=== PATIENT | female | born 1960 | race Caucasian/White ===

== ENCOUNTER 2020-12-07 17:43 | Emergency (ER) | payer OTHER ==
[~2020-12-07] VITALS: Ht 157.5 cm; Wt 77.2 kg
[~2020-12-07 17:43] MED LIST: FLUO10CA15 PO; OLAN2.5T11 PO; OMEP10CA PO; OXYC1TAB20 PO; WARF3TAB50 PO
--- NOTE | 2020-12-07 19:12 | PHYS DOC ---
Past History Past Medical History: Anxiety, Depression, DVT, GERD, Hypertension Additional Past Medical Histor: MYASTHENIA GRAVIS; SINUS THROMBOSIS (SLAVA DIETRICH APRN) Past Surgical History: Cholecystectomy, Other Additional Past Surgical Histo: LEG FX REPAIR WITH PLATES ANS SCREWS; PARTIAL DISCECTOMY (SLAVA DIETRICH APRN) Smoking: Cigarettes Alcohol Use: Occasionally Drug Use: None (SLAVA DIETRICH APRN) General Adult EDM: Chief Complaint: HYPERTENSION HPI: HPI: Patient is a 89-year-old female who presents with hypertension. Patient states that she was seen today at her neurologist when you told her blood pressure was elevated and she needed to come to the emergency room. Patient states that she went to [facility] and sat in the ER for an hour without being seen so she left and came here. Triage and patient she states "I remembered I did not take my blood pressure medicine this morning". "I just feel very stressed out and anxious". "That is why my blood pressure is so high". Patient denies headache, chest pain, shortness of breath. Patient has history of myasthenia gravis, hypertension, and is currently being treated for a scratch bite to her left ankle. (SLAVA DIETRICH APRN) Review of Systems: Review of Systems: Constitutional: Denies fever or chills Eyes: Denies change in visual acuity HENT: Denies nasal congestion or sore throat Respiratory: Denies cough or shortness of breath Cardiovascular: Denies chest pain or edema GI: Denies abdominal pain, nausea, vomiting, bloody stools or diarrhea : Denies dysuria Musculoskeletal: Denies back pain or joint pain Integument: Denies rash Neurologic: Denies headache, focal weakness or sensory changes Endocrine: Denies polyuria or polydipsia Lymphatic: Denies swollen glands Psychiatric: Reports depression and anxiety (SLAVA DIETRICH APRN) Allergies: Allergies: Allergies Coded Allergies Type Severity Reaction Last Updated Verified Penicillins Allergy Unknown Swelling 02/03/15 Yes (SLAVA DIETRICH APRN) Physical Exam: PE: Constitutional: Well developed, well nourished, no acute distress, non-toxic appearance. [] HENT: Normocephalic, atraumatic, bilateral external ears normal, oropharynx moist, no oral exudates, nose normal. [] Eyes: PERRLA, EOMI, conjunctiva normal, no discharge. [] Neck: Normal range of motion, no tenderness, supple, no stridor. [] Cardiovascular:Heart rate regular rhythm, no murmur [] Lungs & Thorax: Bilateral breath sounds clear to auscultation [] Abdomen: Bowel sounds normal, soft, no tenderness, no masses, no pulsatile masses. [] Skin: Warm, dry, no erythema, no rash. [] Back: No tenderness, no CVA tenderness. [] Extremities: No tenderness, no cyanosis, no clubbing, ROM intact, no edema. [] Neurologic: Alert and oriented X 3, normal motor function, normal sensory function, no focal deficits noted. [] Psychologic: tearful, anxious (SLAVA DIETRICH APRN) Current Patient Data: Vital Signs: Vital Signs Date Time Temp Pulse Resp B/P (MAP) Pulse Ox O2 Delivery O2 Flow Rate FiO2 12/07/20 18:15 210/97 (134) 12/07/20 18:06 98.3 84 18 97 Room Air (SLAVA DIETRICH APRN) EKG: EKG: Sinus Rhythm. HR 79 BPM. Read by .[] (SLAVA DIETRICH APRN) Radiology/Procedures: Radiology/Procedures: [] (SLAVA DIETRICH APRN) Heart Score: Risk Factors: Risk Factors: DM, Current or recent (<one month) smoker, HTN, HLP, family history of CAD, obesity. Risk Scores: Score 0 - 3: 2.5% MACE over next 6 weeks - Discharge Home Score 4 - 6: 20.3% MACE over next 6 weeks - Admit for Clinical Observation Score 7 - 10: 72.7% MACE over next 6 weeks - Early Invasive Strategies (SLAVA DIETRICH APRN) Course & Med Decision Making: Course & Med Decision Making Pertinent Labs and Imaging studies reviewed. (See chart for details) []Patient is a 89-year-old female who presents with hypertension. Patient states that she was seen today at her neurologist when you told her blood pressure was elevated and she needed to come to the emergency room. Patient states that she went to [facility] and sat in the ER for an hour without being seen so she left and came here. Triage and patient she states "I remembered I did not take my blood pressure medicine this morning". "I just feel very stressed out and anxious". "That is why my blood pressure is so high". Patient denies headache, chest pain, shortness of breath. Patient has history of myasthenia gravis, hypertension, and is currently being treated for a scratch bite to her left ankle. She is being seen for asymptomatic hypertension. Patient reports that she did not take her blood pressure medicine this morning. Patient's blood pressure was 203/104. Patient denies headache, shortness of breath, chest pain. Patient is very tearful and anxious. "I am so sick of being sick". Clonidine ordered for blood pressure and EKG to rule out any cardiac arrhythmias. Patient given Xanax for her anxiety. Patient reports that she takes 0.25 mg at home. Will reassess patient after medications are given. Reassessment of blood pressure was 170/85. Patient states that she checks her blood pressure regularly at home and that it was only high because she had forgotten to take her medication today. Patient states that she feels much better and her anxiety is gone after medication given. Patient is requesting to be discharged to home. Patient is hemodynamically stable. Will have patient follow-up with primary care physician with any concerns. (SLAVA DIETRICH APRN) Dragon Disclaimer: Dragon Disclaimer: This electronic medical record was generated, in whole or in part, using a voice recognition dictation system. (SLAVA DIETRICH APRN) Departure Departure: Impression: Primary Impression: Hypertension Qualified Codes: I15.8 - Other secondary hypertension Disposition: 01 DC HOME SELF CARE/HOMELESS Condition: GOOD Referrals: ANG MOORE (PCP) Patient Instructions: Anxiety and Panic Attacks, [id number], Hypertension, [id number] Additional Instructions: You were seen in the emergency room today for elevated blood pressure and anxiety. You were given anxiety medication and blood pressure medication while in the emergency room. Please make sure to take your blood pressure medicine daily as prescribed. If you have any other questions or concerns, please return to the emergency room. Otherwise, follow-up with your primary care physician. EMERGENCY DEPARTMENT GENERAL DISCHARGE INSTRUCTIONS Thank you for coming to [facility] (ED) today and trusting us with you care. We trust that you had a positivie experience in our Emergency Department. If you wish to speak to the department management, you may call the director at [phone]. YOUR FOLLOW UP INSTRUCTIONS ARE FOLLOWS: 1. Do you have a private Doctor? If you do not have a private doctor, please ask for a resource list of physicians or clinics that may be able to assist you with follow up care. 2. The Emergency Physician has interpreted your x-rays. The X-Ray specialist will also review them. If there is a change in the findings, you will be notified in 48 hours when at all possible. 3. A lab test or culture has been done, your results will be reviewed and you will be notified if you need a change in treatment. ADDITIONAL INSTRUCTIONS AND INFORMATION: 1. Your care today has been supervised by a physician who is specially trained in emergency care. Many problems require more than one evaluation for a complete diagnosis and treatment. We recommend that you schedule your follow up appointment as recommended to ensure complete treatment of you illness or injury. If you are unable to obtain follow up care and continue to have a problem, or if your condition worsens, we recommend that you return to the ED. 2. We are not able to safely determine your condition over the phone nor are we able to give sound medical advice over the phone. For these safety reasons, if you call for medical advice we will ask you to come to the ED for further evaluation. 3. If you have any questions regarding these discharge instructions please call the ED at [phone]. SAFETY INFORMATION: In the interest of safety, wellness, and injury prevention; we encourage you to wear your sealbelt, if you smoke; quite smoking, and we encourage family to use a protective helmet for bicycling and other sporting events that present an increased risk for head injury. IF YOUR SYMPTOMS WORSEN OR NEW SYMPTOMS DEVELOP, OR YOU HAVE CONCERNS ABOUT YOUR CONDITION; OR IF YOUR CONDITION WORSENS WHILE YOU ARE WAITING FOR YOUR FOLLOW UP APPOINTMENT; EITHER CONTACT YOUR PRIMARY CARE DOCTOR, THE PHYSICIAN WHOSE NAME AND NUMBER YOU WERE GIVEN, OR RETURN TO THE ED IMMEDIATELY. Attending Signature Attending Signature I have participated in the care of this patient and I have reviewed and agree with all pertinent clinical information above including history, exam, and recommendations. (JONNY MIXON MD) SLAVA DIETRICH APRN Dec 07, 2020 19:12 JONNY MIXON MD Dec 08, 2020 18:29
[2020-12-07] MEDS ORDERED: ALPRAZolam 0.25 MG TABLET PO ONE (19:15)
[2020-12-07] MEDS ORDERED: cloNIDine HCL 0.1 MG TABLET PO ONE (19:15)
--- NOTE | 2020-12-07 20:06 | EKG ---
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
[2020-12-07 21:03] VITALS: BP 171/85
== END 2020-12-07 21:02 | disposition home or self-care (01) ==
LOC: ER 17:43
DX: I15.8 Other secondary hypertension (principal); F41.9 Anxiety disorder, unspecified; F32.9 Major depressive disorder, single episode, unspecified; K21.9 Gastro-esophageal reflux disease without esophagitis; F17.210 Nicotine dependence, cigarettes, uncomplicated; Z86.718 Personal history of other venous thrombosis and embolism; Z88.0 Allergy status to penicillin
CPT/HCPCS: 93005; 99283

== ENCOUNTER → 2020-12-14 | Outpatient (CLI) | payer OTHER ==
[2020-12-07 21:03] VITALS: BP 171/85
--- NOTE | 2020-12-14 15:52 | RAD ---
Ankle-brachial indices bilaterally: Reason for examination: Cat bite to left leg. Nonhealing. History of hypertension. Right brachial 192 Right posterior tibial artery 178 Right dorsalis pedis artery 185 Right ankle brachial index 0.97 Left brachial 188 Left posterior tibial artery 176 Left dorsalis pedis artery 161 Left ankle brachial index 0.93 IMPRESSION: Mild decreased ankle-brachial indices bilaterally but still within acceptable limits. Left lower extremity arterial Doppler: The left lower extremity arterial system was evaluated from the left common femoral artery distally t o the posterior tibial and dorsalis pedis arteries with grayscale imaging, color-flow imaging and spe ctral analysis. There are triphasic waveforms from the common femoral artery to the popliteal artery. There are bipha sic waveforms at the distal posterior tibial artery and the dorsalis pedis artery. There appears to b e a monophasic waveform at the proximal posterior tibial artery and at the anterior tibial arteries. The peroneal artery was not visualized. There appear to be increased flow velocities at the common fe moral artery to the distal superficial femoral artery and at the anterior tibial artery. Flow velocities are as follows: (In centimeters per second) Common femoral artery 168 Profunda femoral artery 174 Proximal superficial femoral artery 141 Mid superficial femoral artery 1:30 Distal superficial femoral artery 132 Popliteal artery 70 Proximal posterior tibial artery 80 Distal posterior tibial artery 63 Anterior tibial artery 102 Dorsalis pedis artery 37 IMPRESSION: Normal triphasic waveforms with some elevation of the flow velocities from the common femoral artery to the distal superficial femoral artery. Monophasic waveforms at the proximal posterior tibial arter y and anterior tibial artery which may reflect high-grade stenosis or collateral flow. Electronically signed by: Marilyn Pate MD (12/14/2020 3:49 PM) [facility]
== END ==
LOC: US 12:45
PROVIDERS: ATTEND Emergency Medicine Undersea and Hyperbaric Medicine
DX: I87.011 Postthrombotic syndrome with ulcer of right lower extremity (principal); L97.212 Non-pressure chronic ulcer of right calf with fat layer exposed; I10 Essential (primary) hypertension
CPT/HCPCS: 93922; 93926

== ENCOUNTER 2021-05-05 16:11 | Emergency (ER) | payer OTHER ==
[~2021-05-05] VITALS: Ht 157.5 cm; Wt 80.0 kg
--- NOTE | 2021-05-05 16:42 | PHYS DOC ---
Past History Past Medical History: Anxiety, Depression, DVT, GERD, Hypertension Additional Past Medical Histor: MYASTHENIA GRAVIS; SINUS THROMBOSIS (MERLINE CHENG DO) Past Surgical History: Cholecystectomy, Other Additional Past Surgical Histo: LEG FX REPAIR WITH PLATES ANS SCREWS; PARTIAL DISCECTOMY (MERLINE CHENG DO) Smoking: Cigarettes Alcohol Use: Occasionally Drug Use: None (MERLINE CHENG DO) Adult General Chief Complaint Chief Complaint: SHORTNESS OF BREATH HPI HPI Patient is a 60-year-old female presenting for shortness of breath. Reports this is an acute on chronic issue, states in the past 4 days she has had increased dyspnea, generalized chest pressure and wheezing. She is concerned as she has history of myasthenia gravis, was intubated in December 2020 and had lengthy hospitalization at [facility] December through March for myasthenia and related complications. She has feeding tube and was subsequently discharged home as mentioned early March. Reports since she was discharged home, she has been picking up smoking as she has been more stressed. Denies any fever, vision changes, chest pain, ripping or tearing sensation in chest but does admit ongoing shortness of breath, wheezing, dry nonproductive cough and generalized chest pressure that is worse with exertion. Does admit she is currently anticoagulated with warfarin with last INR check several days ago and was 3.0, no other significant changes in baseline health (MERLINE CHENG DO) Review of Systems Review of Systems Fourteen body systems of review of systems have been reviewed. See HPI for pertinent positives and negative responses, other de la garza all other systems are negative, non-pertinent or non-contributory (MERLINE CHENG DO) Allergies Allergies Allergies Coded Allergies Type Severity Reaction Last Updated Verified Penicillins Allergy Unknown Swelling 05/05/21 Yes (MERLINE CHENG DO) Physical Exam Physical Exam Constitutional: Well developed, well nourished, no acute distress, non-toxic appearance. HENT: Normocephalic, atraumatic, bilateral external ears normal, oropharynx moist, no oral exudates, nose normal. Eyes: PERRLA, EOMI, conjunctiva normal, no discharge. Neck: Normal range of motion, no tenderness, supple, no stridor. Cardiovascular: Heart rate regular, sinus rhythm, no murmurs rubs or gallops Lungs & Thorax: No overt signs respiratory failure or tachypnea both patient is demonstrated increased work of breathing and accessory muscle use and neck, patient does have crackles and diffuse rhonchi with wheezing noted on end expiratory phases of respiration Abdomen: Bowel sounds normal, soft, J-tube present and well-appearing, no tenderness, no masses, no pulsatile masses. Nonsurgical abdomen, no peritoneal signs Skin: Warm, dry, no erythema, no rash. Back: No tenderness, no CVA tenderness. Extremities: No tenderness, no cyanosis, no clubbing, ROM intact, no edema. Neurologic: Alert and oriented X 3, grossly normal motor & sensory function, no focal deficits noted. Psychologic: Anxious affect and mood (MERLINE CHENG DO) Current Patient Data Vital Signs Vital Signs Date Time Temp Pulse Resp B/P (MAP) Pulse Ox O2 Delivery O2 Flow Rate FiO2 05/05/21 16:31 98.7 90 20 156/84 95 Lab Results Current Medications Medications (Trade) Dose Ordered Sig/Jenny Route PRN Reason Start Time Stop Time Status Last Admin Dose Admin Iohexol (Omnipaque 350 Mg/ml) 100 ml 1X ONCE IV 05/05/21 17:30 05/05/21 17:31 DC 05/05/21 17:32 Info (Do NOT chart on this entry -- for MONITORING) 1 each PRN DAILY PRN MC SEE COMMENTS 05/05/21 17:30 05/05/21 19:48 DC Albuterol/ Ipratropium (Duoneb) 3 ml 1X ONCE NEB 05/05/21 18:15 05/05/21 18:17 DC 05/05/21 18:16 Methylprednisolone Sodium Succinate (SOLU-Medrol 125MG VIAL) 125 mg 1X ONCE IV 05/05/21 18:15 05/05/21 18:17 DC 05/05/21 18:45 Albuterol/ Ipratropium (Duoneb) 3 ml STK-MED ONCE .ROUTE 05/05/21 18:12 05/05/21 18:13 DC Azithromycin (Zithromax) 500 mg 1X ONCE PO 05/05/21 18:30 05/05/21 18:31 DC 05/05/21 18:44 (MERLINE CHENG DO) EKG EKG EKG ordered and interpreted by myself at 1640 hrs. as sinus rhythm at 82 bpm, unremarkable intervals, no axis deviation, no obvious ischemic findings, no STEMI (MERLINE CHENG DO) Radiology/Procedures Radiology/Procedures XR CHEST 1V History: Reason: shob / Spl. Instructions: / History: Comparison: March 11, 2014 Findings: Ill-defined bibasilar opacities. No pleural effusion. No pneumothorax. Normal heart size. Impression: 1. Mild ill-defined bibasilar opacities, may represent atelectasis or developing infiltrates. If persistent clinical concern, recommend follow-up. Electronically signed by: Nick Butler DO (05/05/2021 5:06 PM) [facility] ////////////////////// Exam: CT of chest with contrast INDICATION: Shortness of breath, factor V Leiden TECHNIQUE: Sequential axial images through the chest obtained following the administration 100 mL of Omni 350 IV contrast. Sagittal and coronal reformatted images were reconstructed from the axial data and reviewed. 3-D reformatted images were reconstructed from the axial data and reviewed. Exposure: One or more of the following in the visualized dose reduction techniques were utilized for this examination: 1. Automated exposure control 2. Adjustment of the MA and/or KV according to patient size 3. Use of iterative of reconstructive technique Comparisons: Chest x-ray same day FINDINGS: Visual is portions of the thyroid are unremarkable. No enlarged mediastinal l ymph nodes are identified. Size is normal. No pericardial effusion. Thoracic aorta has a normal course and caliber. Pulmonary artery is not enlarged. No pulmonary embolus identified within the main, lobar or segmental pulmonary arteries. Airways are patent. No consolidation or pneumothorax. Linear bandlike opacity noted in the left upper lobe likely representing atelectasis. Mild centrilobular emphysematous change noted in the upper lungs. No suspicious lung nodules. No pleural effusion or thickening. Hyperattenuating cystic lesion in the left hepatic lobe which measures approximately 3.1 cm in diameter. No suspicious osseous lesions or acute fractures. IMPRESSION: No pulmonary embolus identified within the main, lobar or segmental pulmonary arteries. Electronically signed by: Shanti Ch MD (05/05/2021 5:58 PM) [facility] (MERLINE CHENG DO) Radiology/Procedures Exam: CT of chest with contrast INDICATION: Shortness of breath, factor V Leiden TECHNIQUE: Sequential axial images through the chest obtained following the administration 100 mL of Omni 350 IV contrast. Sagittal and coronal reformatted images were reconstructed from the axial data and reviewed. 3-D reformatted images were reconstructed from the axial data and reviewed. Exposure: One or more of the following in the visualized dose reduction techniques were utilized for this examination: 1. Automated exposure control 2. Adjustment of the MA and/or KV according to patient size 3. Use of iterative of reconstructive technique Comparisons: Chest x-ray same day FINDINGS: Visual is portions of the thyroid are unremarkable. No enlarged mediastinal lymph nodes are identified. Size is normal. No pericardial effusion. Thoracic aorta has a normal course and caliber. Pulmonary artery is not enlarged. No pulmonary embolus identified within the main, lobar or segmental pulmonary arteries. Airways are patent. No consolidation or pneumothorax. Linear bandlike opacity noted in the left upper lobe likely representing atelectasis. Mild centrilobular emphysematous change noted in the upper lungs. No suspicious lung nodules. No pleural effusion or thickening. Hyperattenuating cystic lesion in the left hepatic lobe which measures approximately 3.1 cm in diameter. No suspicious osseous lesions or acute fractures. IMPRESSION: No pulmonary embolus identified within the main, lobar or segmental pulmonary arteries. Electronically signed by: Shanti Ch MD (05/05/2021 5:58 PM) [facility] (IRISH RENAE MD) Heart Score C/O Chest Pain: No HEART Score for Chest Pain: HEART Score for Chest Pain Response (Comments) Value History Moderately Suspicious 1 ECG Normal 0 Age >45 - < 65 1 Risk Factors >3 Risk Factors or Hx CAD 2 Troponin < Normal Limit 0 Total 4 Risk Factors: Risk Factors: DM, Current or recent (<one month) smoker, HTN, HLP, family history of CAD, obesity. Risk Scores: Risk Factors: DM, Current or recent (<one month) smoker, HTN, HLP, family history of CAD, obesity. (MERLINE CHENG DO) Course & Med Decision Making Course & Med Decision Making ABCs unremarkable. I disclosed entirety of ER findings and discussed most likely diagnosis of acute exacerbation of COPD and a high risk patient with known myasthenia gravis receiving IVIG in outpatient setting. Patient tolerated DuoNeb and steroid and azithromycin treatment while in ER setting. Despite patient being on warfarin, joint decision made with patient to administer extremely short-term dose of azithromycin x3 days total with plans for repeat INR check within upcoming 72 hours. CTA performed and initially interpreted by myself as negative for any obvious pulmonary embolism, patient still pending NIF at time of my shift's end. Patient care transition to oncoming physician, Dr. Renae. Thorough signout was given. Please defer to his documentation regarding future care of patient while in ER Critical Care Time This patient required critical care. Due to the fact that the patient required a significant amount of one on one physician - patient contact time, ordering and review of studies, arranging urgent treatment with development of a management plan, evaluation of patients response to treatment with frequent reassessments, and discussions with other providers this patient required 35 minutes of critical care time. Critical care time was indicated due to the inherent instability and/or potential for instability in this patient. The critical care time that is allocated to this patient is above and beyond any time spent on any other billable procedures performed on this patient. (MERLINE CHENG DO) Course & Med Decision Making Patient care handed off to me at checkout pending CTA. Patient awake alert and oriented no acute distress, pleasant and cooperative. Patient stating she would prefer to go home and not be admitted. Laboratory analysis notable for leuk ocytosis. CTA of the chest with no pulmonary embolism or pneumonia noted. NIF, Peak flow, IS normal. Started on antibiotics for COPD exacerbation. Given breathing treatments and steroids in the emergency department. Patient on chronic steroids at home as well. Discussed all findings with patient and offered admission for observation, but patient stated that she would prefer to go home and just call her primary care/neurologist first thing in the morning at [facility]. Gave the risks of myasthenia gravis exacerbation including significant difficulty breathing, chest pain, disability and in the worst case scenario. Patient stated she understood but would prefer to go on home. Given prescription for doxycycline. (IRISH RENAE MD) Dragon Disclaimer Dragon Disclaimer This electronic medical record was generated, in whole or in part, using a voice recognition dictation system. (MERLINE CHENG DO) Departure Departure: Impression: Primary Impression: Acute exacerbation of chronic obstructive pulmonary disease Additional Impression: Myasthenia gravis Disposition: HOME / SELF CARE / HOMELESS Condition: IMPROVED Referrals: ANG MOORE (PCP) Scripts Azithromycin (ZITHROMAX) 500 Mg Tablet 1 TAB PO DAILY for aecopd, #2 TAB Prov: MERLINE CHENG DO 05/05/21 Prednisone (PREDNISONE) 20 Mg Tablet 40 MG PO DAILY for bronchitis for 5 Days, #10 TAB Prov: MERLINE CHENG DO 05/05/21 Problem Qualifiers MERLINE CHENG DO May 05, 2021 16:42 IRISH RENAE MD May 05, 2021 19:29
--- NOTE | 2021-05-05 17:08 | RAD ---
XR CHEST 1V History: Reason: shob / Spl. Instructions: / History: Comparison: March 11, 2014 Findings: Ill-defined bibasilar opacities. No pleural effusion. No pneumothorax. Normal heart size. Impression: 1. Mild ill-defined bibasilar opacities, may represent atelectasis or developing infiltrates. If per sistent clinical concern, recommend follow-up. Electronically signed by: Nick Butler DO (05/05/2021 5:06 PM) [facility]
[2021-05-05] MEDS ORDERED: CONTRAST GIVEN. MC PRN (17:30)
[2021-05-05] MEDS: IOHEXOL 350 MG/ML 100 ML VIAL. IV ONE (17:32)
[2021-05-05 17:43] LABS: BASO # 0.1 x10^3/uL (0.0-0.2); BASO % 1 % (0-3); EOS % 0 % (0-3); HEMATOCRIT 32.9 % (36.0-47.0); HEMOGLOBIN 10.5 g/dL (12.0-15.5); LYMPH # 1.7 x10^3/uL (1.0-4.8); LYMPH % 11 % (24-48); MEAN CORPUSCULAR HEMOGLOBIN 26 pg (25-35); MEAN CORPUSCULAR HGB CONC 32 g/dL (31-37); MEAN CORPUSCULAR VOLUME 83 fL (79-100); MONO % 7 % (0-9); NEUT % 81 % (31-73); PLATELET COUNT 412 x10^3/uL (140-400); RED BLOOD COUNT 3.98 x10^6/uL (3.50-5.40); RED CELL DISTRIBUTION WIDTH 16.8 % (11.5-14.5); WHITE BLOOD COUNT 14.8 x10^3/uL (4.0-11.0)
[2021-05-05 17:53] LABS: CALCIUM 9.3 mg/dL (8.5-10.1); CREATININE 0.9 mg/dL (0.6-1.0); GFR 64.3; POTASSIUM 4.2 mmol/L (3.5-5.1)
[2021-05-05 17:58] LABS: ALBUMIN 3.7 g/dL (3.4-5.0); ALBUMIN/GLOBULIN RATIO 0.9 (1.0-1.7); TOTAL BILIRUBIN 0.2 mg/dL (0.2-1.0); TOTAL PROTEIN 7.8 g/dL (6.4-8.2)
--- NOTE | 2021-05-05 18:00 | RAD ---
Exam: CT of chest with contrast INDICATION: Shortness of breath, factor V Leiden TECHNIQUE: Sequential axial images through the chest obtained following the administration 100 mL of Omni 350 IV contrast. Sagittal and coronal reformatted images were reconstructed from the axial data and reviewed. 3-D reformatted images were reconstructed from the axial data and reviewed. Exposure: One or more of the following in the visualized dose reduction techniques were utilized for this examination: 1. Automated exposure control 2. Adjustment of the MA and/or KV according to patient size 3. Use of iterative of reconstructive technique Comparisons: Chest x-ray same day FINDINGS: Visual is portions of the thyroid are unremarkable. No enlarged mediastinal lymph nodes are identifie d. Size is normal. No pericardial effusion. Thoracic aorta has a normal course and caliber. Pulmonary ar juan miguel is not enlarged. No pulmonary embolus identified within the main, lobar or segmental pulmonary a rteries. Airways are patent. No consolidation or pneumothorax. Linear bandlike opacity noted in the left upper lobe likely representing atelectasis. Mild centrilobular emphysematous change noted in the upper misha gs. No suspicious lung nodules. No pleural effusion or thickening. Hyperattenuating cystic lesion in the left hepatic lobe which measures approximately 3.1 cm in diamet er. No suspicious osseous lesions or acute fractures. IMPRESSION: No pulmonary embolus identified within the main, lobar or segmental pulmonary arteries. Electronically signed by: Shanti Ch MD (05/05/2021 5:58 PM) [facility]
[2021-05-05] MEDS ORDERED: IPRATRPIUM/ALBUTEROL 0.5/2.5MG 3 ML NEBU. ONE (18:12)
[2021-05-05] MEDS: IPRATRPIUM/ALBUTEROL 0.5/2.5MG 3 ML NEBU. NEB ONE (18:16)
[2021-05-05] MEDS ORDERED: AZIT500T PO (18:20)
[2021-05-05] MEDS ORDERED: PRED20TA PO (18:20)
[2021-05-05] MEDS: AZITHROMYCIN 250 MG TABLET. PO ONE (18:44)
[2021-05-05] MEDS: methylPREDNISolone SOD SUCC PF 125 MG/2 ML VIAL. IV ONE (18:45)
[2021-05-05 19:35] VITALS: BP 150/82
--- NOTE | 2021-05-05 20:22 | EKG ---
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
== END 2021-05-05 19:48 | disposition home or self-care (01) ==
LOC: ER 16:11
DX: J44.1 Chronic obstructive pulmonary disease with (acute) exacerbation (principal); G70.00 Myasthenia gravis without (acute) exacerbation; K21.9 Gastro-esophageal reflux disease without esophagitis; I10 Essential (primary) hypertension; Z90.49 Acquired absence of other specified parts of digestive tract; F17.210 Nicotine dependence, cigarettes, uncomplicated
CPT/HCPCS: 36415; 71045; 71275; 80053; 84484; 85025; 93005; 94640; 96374; 99284; G0238; J2930; Q9967

== ENCOUNTER → 2021-05-27 | Outpatient (CLI) | payer OTHER ==
[2021-05-05 19:35] VITALS: BP 150/82
[~2021-05-27] MED LIST changes: +AZIT500T PO; +PRED20TA PO
--- NOTE | 2021-05-31 10:48 | RAD ---
PROCEDURE: MG BILAT SCREEN+LETTY HISTORY: The patient is 60 years old and is seen for Reason: SCREENING / Spl. Instructions: / Histor y: . COMPARISON: April 19, 2018 TECHNIQUE: CC and MLO views of both breasts were obtained. Images were processed by the [employer] computer-aided detection system. DENSITY: There are scattered fibroglandular densities. FINDINGS: No developing mass, suspicious calcifications or architectural distortion. IMPRESSION: Negative. No evidence of malignancy. Recommend annual screening mammograms per [employer] [employer] guidelines. BI-RADS category 1 Negative Patient entered into a reminder system for annual screening mammogram. Electronically signed by: Nick Butler DO (05/31/2021 10:46 AM) [id number]
== END ==
LOC: MAMMO 08:01
PROVIDERS: ATTEND Physician Assistant Medical
DX: Z12.31 Encounter for screening mammogram for malignant neoplasm of breast (principal)
CPT/HCPCS: 77063; 77067